=== PATIENT | female | born 1950 | race Caucasian/White ===

== ENCOUNTER → 2017-08-18 08:57 | Outpatient (CLI) | payer MEDICARE ==
[~2017-08-18 08:57] MED LIST: ISOSORBIDE MON120 M1 PO; KEPPRA1000 MG PO; METOPROLOL TART50 MG PO; OMEPRAZOLE40 MG PO; XARELTO10 MG PO; ZOLOFT50 MG PO
[2017-08-26 07:21] VITALS: BMI 27.4
== END | disposition home or self-care (01) ==
LOC: D.CT 08-14 08:00
DX: R04.2 Hemoptysis (principal)

== ENCOUNTER → 2017-08-21 07:59 | Outpatient (CLI) | payer MEDICARE ==
[2017-08-26 07:21] VITALS: BMI 27.4
== END | disposition home or self-care (01) ==
LOC: D.RAD 08-17 10:00
DX: K21.9 Gastro-esophageal reflux disease without esophagitis (principal); R11.2 Nausea with vomiting, unspecified

== ENCOUNTER 2017-08-26 06:14 | Day surgery (SDC) | payer MEDICARE ==
[~2017-08-26] VITALS: Ht 154.9 cm; Wt 65.9 kg
[2017-08-26] MEDS ORDERED: KEPPRA1000 MG PO ×2 (06:59)
[2017-08-26] MEDS ORDERED: XARELTO10 MG PO (07:00)
[2017-08-26] MEDS ORDERED: ISOSORBIDE MON120 M1 PO (07:01)
[2017-08-26] MEDS ORDERED: METOPROLOL TART50 MG PO (07:02)
[2017-08-26] MEDS ORDERED: ZOLOFT50 MG PO (07:03)
[2017-08-26 07:21] VITALS: BP 165/84; Ht 154.9 cm; Wt 65.9 kg
[2017-08-26 07:36] LABS: BASOPHILS 0.1 % (0-2); EOSINOPHILS 2.4 % (0-7); HEMATOCRIT 41.4 % (36.0-48.0); HEMOGLOBIN 13.7 g/dL (12-16); IMMATURE GRANULOCYTES 0.4 % (0-5); LYMPHOCYTES 29.7 % (15-50); MCH 32.4 pg (26.0-34.0); MCHC 33.1 g/dL (31.0-37.0); MCV 97.9 fL (80.0-100.0); MEAN PLATELET VOLUME 10.2 fL (7.4-10.4); MONOCYTES 9.9 % (2-11); NEUTROPHILS 57.5 % (40-80); PLATELET COUNT 189 10x3/uL (130-400); RBC 4.23 10x6/uL (4.00-5.40); RDW 12.6 % (11.5-14.5); WBC 6.7 10x3/uL (4.8-10.8)
[2017-08-26 07:53] LABS: ALBUMIN 3.6 g/dL (3.4-5.0); ALKALINE PHOSPHATASE 130 U/L (46-116); ALT (SGPT) 44 U/L (10-68); CALC OSMOLALITY 277 mosm/kg (275-300); CALCIUM 9.5 mg/dL (8.5-10.1); CARBON DIOXIDE 25.4 mmol/L (21.0-32.0); CHLORIDE - SERUM 106 mmol/L (98-107); CREATININE - SERUM 0.8 mg/dL (0.6-1.3); GLUCOSE 104 mg/dL (74-106); POTASSIUM - SERUM 4.7 mmol/L (3.5-5.1); PROTEIN - SERUM 7.9 g/dL (6.4-8.2); SODIUM 138 mmol/L (136-145); UREA NITROGEN 17 mg/dL (7-18); eGFR NON AFRICAN AMERICAN 75 mL/min (90-120)
[2017-08-26] MEDS ORDERED: OMEPRAZOLE40 MG PO (08:35)
--- NOTE | 2017-08-26 12:40 | OP ---
PATIENT NAME: FARHEEN NIX MEDICAL RECORD: [id number] :48 LOCATION:[facility] ADMISSION DATE: SURGEON: SHAGGY MYERS MD DATE OF OPERATION: 08/26/2017 DATE OF PROCEDURE: 08/26/2017 SURGEON: Shaggy Myers MD PREOPERATIVE DIAGNOSES: 1. Intractable nausea and vomiting. 2. Gastroesophageal reflux disease. 3. Hemoptysis. POSTOPERATIVE DIAGNOSES: 1. Intractable nausea and vomiting. 2. Gastroesophageal reflux disease. 3. Hemoptysis. PROCEDURE PERFORMED: EGD with biopsy. ANESTHESIA: Total intravenous anesthesia. Case was contaminated. ESTIMATED BLOOD LOSS: Minimal. COMPLICATIONS: None. SPECIMENS: 1. Duodenum. 2. Antrum. 3. Stomach body. 4. GE junction. OPERATIVE COURSE: After consent was obtained, the patient was taken to the endoscopy suite. A timeout was taken to confirm the correct patient and procedure. The patient was placed in left lateral decubitus position. Hurricaine [place] was administered. A bite block was placed. Total intravenous anesthesia was given. The gastroscope was then inserted through the bite block, it was passed into the posterior oropharynx under direct endoscopic vision, it was advanced posterior to the epiglottis and advanced to the esophagus and into the stomach. The stomach was insufflated. The scope was then passed from the stomach and through the pylorus. The duodenum was intubated. Duodenum appeared grossly normal. Multiple cold biopsies were taken of the duodenum at this time. The scope was withdrawn to the prepyloric region. There was some mwao-fl-xxyjtcjz antritis noted. Multiple biopsies were taken of the gastric antrum and prepyloric region. The stomach was examined. There was some mild gastritis noted. Multiple biopsies were taken of the stomach body. The scope was retroflexed. There was a small sliding hiatal hernia. There appears to be no endoscopic evidence of prior Noe fundoplication performed. The scope was withdrawn to the GE junction. Again noted, there was a small sliding hiatal hernia. The Z-line was within normal limits. There was some mild esophagitis noted. Multiple biopsies were taken of the GE junction. The remaining portion of the esophagus appeared within normal limits upon withdrawal of the scope. At OPERATIVE REPORT [id number] FARHEEN NIX the end of the procedure, all needle and instrument counts were correct. No complications occurred. The patient was transferred to the recovery room in satisfactory condition. TRANSINT:[id number] Voice Confirmation ID: [id number] DOCUMENT ID: [id number] SHAGGY MYERS MD at 1240 CC: [id number] DICTATION DATE: 08/26/17839 RACE STEWARD: 08/26/17 1107 [facility] 08/26/17 [place] [id number] [place] [id number]
== END 2017-08-26 09:50 | disposition home or self-care (01) ==
LOC: D.OPS 06:14
PROVIDERS: Anesthesiology
DX: R11.2 Nausea with vomiting, unspecified (principal); K21.9 Gastro-esophageal reflux disease without esophagitis; R04.2 Hemoptysis; I10 Essential (primary) hypertension; K44.9 Diaphragmatic hernia without obstruction or gangrene; K76.0 Fatty (change of) liver, not elsewhere classified; Z01.812 Encounter for preprocedural laboratory examination

== ENCOUNTER 2017-09-15 08:47 | Outpatient (CLI) | payer MEDICARE ==
[2017-08-26 07:21] VITALS: BMI 27.4
== END 2017-09-15 10:20 ==
LOC: D.OPS 08:47
DX: R11.2 Nausea with vomiting, unspecified (principal); K21.9 Gastro-esophageal reflux disease without esophagitis

== ENCOUNTER 2017-10-27 06:00 | Outpatient (CLI) | payer MEDICARE ==
[2017-08-26 07:21] VITALS: BMI 27.4
[~2017-10-27 06:00] MED LIST changes: +LOPRESSOR25 MG PO; -METOPROLOL TART50 MG PO
[2017-10-27] MEDS ORDERED: NITROSTAT0.4 MG SL (08:57)
[2017-10-27] MEDS ORDERED: BENTYL10 MG PO (09:00)
== END 2017-10-27 23:59 | disposition home or self-care (01) ==
LOC: D.OPS 06:00 → EDSTATUS 10-28 08:20 → D.PAN 10-28 08:20 → D.OPS 10-28 08:20 → D.PAN 10-28 09:30 → D.OPS 10-28 10:00 → D.PAN 10-28 10:00
DX: R11.2 Nausea with vomiting, unspecified (principal); Z01.810 Encounter for preprocedural cardiovascular examination; Z01.811 Encounter for preprocedural respiratory examination; Z01.812 Encounter for preprocedural laboratory examination; Z53.9 Procedure and treatment not carried out, unspecified reason

== ENCOUNTER 2017-11-30 07:07 | Inpatient (IN) | payer MEDICARE ==
[2017-11-27 11:59] LABS: HEMOGLOBIN 13.5 g/dL (12-16); MCH 32.5 pg (26.0-34.0); MCHC 33.8 g/dL (31.0-37.0); MCV 96.4 fL (80.0-100.0); MEAN PLATELET VOLUME 9.8 fL (7.4-10.4); RBC 4.15 10x6/uL (4.00-5.40); RDW 12.4 % (11.5-14.5); WBC 7.8 10x3/uL (4.8-10.8)
[~2017-11-30] VITALS: Ht 154.9 cm; Wt 68.2 kg
[~2017-11-30 07:07] MED LIST changes: +BENTYL10 MG PO; +NITROSTAT0.4 MG SL
[2017-11-30 07:17] VITALS: BP 138/73; BMI 26.5
[2017-11-30 11:17] VITALS: BP 156/79
[2017-11-30 14:06] VITALS: BP 156/79; Ht 154.9 cm; Wt 68.2 kg
[2017-11-30 16:45] VITALS: BP 168/73
[2017-11-30 20:49] VITALS: BP 146/67
[2017-12-01 04:00] VITALS: BP 116/75
[2017-12-01 05:31] LABS: BASOPHILS 0 % (0-2); EOSINOPHILS 0 % (0-7); HEMATOCRIT 35.1 % (36.0-48.0); HEMOGLOBIN 11.4 g/dL (12-16); IMMATURE GRANULOCYTES 0.2 % (0-5); LYMPHOCYTES 8.4 % (15-50); MCH 31.5 pg (26.0-34.0); MCHC 32.5 g/dL (31.0-37.0); MEAN PLATELET VOLUME 9.7 fL (7.4-10.4); MONOCYTES 6.8 % (2-11); NEUTROPHILS 84.6 % (40-80); PLATELET COUNT 207 10x3/uL (130-400); RBC 3.62 10x6/uL (4.00-5.40); RDW 12.4 % (11.5-14.5); WBC 10.1 10x3/uL (4.8-10.8)
[2017-12-01 06:00] LABS: BILIRUBIN - TOTAL 0.46 mg/dL (0.2-1.3); CALCIUM 8.7 mg/dL (8.5-10.1); CARBON DIOXIDE 24.2 mmol/L (21.0-32.0); CREATININE - SERUM 0.9 mg/dL (0.6-1.3); POTASSIUM - SERUM 5.2 mmol/L (3.5-5.1); PROTEIN - SERUM 7.6 g/dL (6.4-8.2)
[2017-12-01 07:49] VITALS: BP 151/73
[2017-12-01] MEDS ORDERED: HYDROCODON-ACE1 EAC7 PO (08:48)
== END 2017-12-01 12:18 | disposition home or self-care (01) | DRG 328 ==
LOC: D.SDCHOLD 07:07 → D.PAN 07:30 → D.OPS 07:30 → EDSTATUS 07:30 → D.SDCHOLD 07:30 → D.OPS 08:30 → D.SDCHOLD 08:30 → D.OPS 09:25 → D.MS 11:01
PROVIDERS: Anesthesiology; Surgery
PROC: 0BQT4ZZ Repair Diaphragm, Percutaneous Endoscopic Approach (ICD-10-PCS; 2017-11-30)
PROC: 0DV Gastrointestinal System, Restriction (ICD-10-PCS; principal; 2017-11-30 09:00)
DX: K21.9 Gastro-esophageal reflux disease without esophagitis (principal); K22.70 Barrett's esophagus without dysplasia; K44.9 Diaphragmatic hernia without obstruction or gangrene; R13.10 Dysphagia, unspecified

== ENCOUNTER → 2018-01-06 13:30 | Outpatient (CLI) | payer MEDICARE ==
[2017-11-30 14:06] VITALS: BMI 28.4
[~2018-01-06 13:30] MED LIST changes: +HYDROCODON-ACE1 EAC7 PO
== END | disposition home or self-care (01) ==
LOC: D.US 13:30
DX: N63.31 Unspecified lump in axillary tail of the right breast (principal)

== ENCOUNTER → 2018-04-07 07:15 | Outpatient (CLI) | payer MEDICARE ==
[2017-11-30 14:06] VITALS: BMI 28.4
[~2018-04-07 07:15] MED LIST changes: +TOPAMAX50 MG
== END | disposition home or self-care (01) ==
LOC: D.US 07:15
DX: N63.31 Unspecified lump in axillary tail of the right breast (principal)

== ENCOUNTER → 2018-05-07 08:07 | Outpatient (CLI) | payer MEDICARE ==
[2017-11-30 14:06] VITALS: BMI 28.4
== END | disposition home or self-care (01) ==
LOC: D.US 08:07
DX: R74.8 Abnormal levels of other serum enzymes (principal); R11.2 Nausea with vomiting, unspecified

== ENCOUNTER 2018-05-12 05:56 | Day surgery (SDC) | payer MEDICARE ==
[~2018-05-12] VITALS: Ht 154.9 cm; Wt 64.1 kg
--- NOTE | ~2018-05-12 | OP ---
PATIENT NAME: FARHEEN NIX MEDICAL RECORD: [id number] :48 [facility] AD[facility] DATE: SURGEON: VICKY BALBUENA DO DATE OF OPERATION: 05/12/2018 PROCEDURE: Colonoscopy with biopsies and stool collection. INDICATIONS FOR PROCEDURE: Diarrhea and hematochezia. SCOPE: Bizily video pediatric colonoscope. MEDICATIONS: Propofol 500 mg IV per anesthesia. WITHDRAWAL TIME: 9 minutes. ESTIMATED BLOOD LOSS: Minimal. COMPLICATIONS: None. FINDINGS: Informed consent was given. The patient was made comfortable with the above medication. After reaching an adequate level of sedation by slow IV push, the patient was placed on her left side. A digital rectal examination was performed and was normal. The endoscope was then advanced under direct visualization through the rectum to the cecum, confirmed by the presence of the appendiceal orifice and ileocecal valve. The endoscope was slowly withdrawn. Mucosa was carefully examined. The prep quality was good. There were no polyps visualized on today's examination. There was moderate diverticulosis scattered throughout the entire colon. Diverticula were of mixed large and small mouth type. There was no evidence of diverticulitis. Random biopsies were taken throughout the colon to submit for histopathology and to rule out the presence of microscopic colitis. Stool was collected to submit for xTAG study to rule out infectious etiology of diarrhea. Retroflexion was performed in the rectum with visualization of a normal-appearing rectal wall. The endoscope was then withdrawn from the patient. The patient tolerated the procedure well, and there were no complications. IMPRESSION: 1. Moderate diverticulosis involving the entire colon. 2. Otherwise normal colonoscopy by appearances. Random biopsies and stool collection performed. PLAN AND RECOMMENDATIONS: 1. Discharge home when recovery parameters are met. 2. Follow up biopsy specimen results and xTAG study. 3. High-fiber diet. 4. Continue current medications. 5. Trial of dicyclomine 20 mg p.o. up to 3 times daily as needed for loose stools or abdominal pain. 6. Recall colonoscopy in 7-10 years. TRANSINT:[id number] Voice Confirmation ID: [id number] DOCUMENT ID: [id number] OPERATIVE REPORT [id number] FARHEEN NIX VICKY BALBUENA DO at 1048 CC: [id number] DICTATION DATE: 09/05/18 0929 ELECTRONIC TESTER: 05/12/18 0945 [facility] 05/12/18 [facility] [address] [place] [address]
[~2018-05-12 05:56] MED LIST changes: -TOPAMAX50 MG
[2018-05-12 06:26] LABS: BASOPHILS 0.2 % (0-2); HEMATOCRIT 41.2 % (36.0-48.0); HEMOGLOBIN 14.1 g/dL (12-16); IMMATURE GRANULOCYTES 0.2 % (0-5); LYMPHOCYTES 22.1 % (15-50); MCH 32.2 pg (26.0-34.0); MCHC 34.2 g/dL (31.0-37.0); MCV 94.1 fL (80.0-100.0); MEAN PLATELET VOLUME 9.9 fL (7.4-10.4); MONOCYTES 9.4 % (2-11); NEUTROPHILS 66.1 % (40-80); PLATELET COUNT 237 10x3/uL (130-400); RBC 4.38 10x6/uL (4.00-5.40); RDW 13.1 % (11.5-14.5); WBC 9.1 10x3/uL (4.8-10.8)
[2018-05-12] MEDS ORDERED: TOPAMAX50 MG (06:41)
[2018-05-12] MEDS ORDERED: BENTYL10 MG PO (06:41)
[2018-05-12 06:49] VITALS: BP 157/86; Ht 154.9 cm; Wt 64.1 kg
[2018-05-12 07:10] LABS: ANION GAP 14.7 mmol/L (8-16); CALCIUM 9.1 mg/dL (8.5-10.1); CARBON DIOXIDE 22.2 mmol/L (21.0-32.0); POTASSIUM - SERUM 3.9 mmol/L (3.5-5.1)
== END 2018-05-12 10:10 | disposition home or self-care (01) ==
LOC: D.OPS 05:56
PROVIDERS: Anesthesiology
DX: K57.30 Diverticulosis of large intestine without perforation or abscess without bleeding (principal); K92.1 Melena; Z01.812 Encounter for preprocedural laboratory examination

== ENCOUNTER 2018-05-13 12:13 | Emergency (ER) | payer MEDICARE ==
[~2018-05-13] VITALS: Ht 154.9 cm; Wt 63.6 kg
[~2018-05-13 12:13] MED LIST changes: +TOPAMAX50 MG
[2018-05-13 12:26] VITALS: Ht 154.9 cm; Wt 63.6 kg
[2018-05-13 13:08] LABS: ALBUMIN 3.8 g/dL (3.4-5.0); ANION GAP 8.8 mmol/L (8-16); BILIRUBIN - TOTAL 0.38 mg/dL (0.2-1.3); POTASSIUM - SERUM 3.8 mmol/L (3.5-5.1); PROTEIN - SERUM 8.7 g/dL (6.4-8.2)
[2018-05-13 13:25] LABS: APPEARANCE HAZY (CLEAR); BACTERIA MODERATE /hpf (NONE SEEN); BILIRUBIN NEGATIVE (NEGATIVE); COLOR YELLOW (YELLOW); EPITHELIAL CELLS 0-5 /hpf (0-5); GLUCOSE NEGATIVE (NEGATIVE); HYALINE CAST 0-5 /lpf (NONE SEEN); KETONE SMALL mg/dL (NEGATIVE); MUCUS <1+ /lpf (NONE SEEN); NITRITE NEGATIVE (NEGATIVE); PROTEIN NEGATIVE (NEGATIVE); SPECIFIC GRAVITY 1.015 (1.005-1.020); UROBILINOGEN NORMAL (NORMAL); WHITE CELLS - URINE 0-5 /hpf (0-5)
[2018-05-13 14:18] LABS: RED CELLS - URINE 0-5 /hpf (0-5)
[2018-05-13 14:25] LABS: BASOPHILS 0.1 % (0-2); EOSINOPHILS 2.4 % (0-7); HEMATOCRIT 40.5 % (36.0-48.0); HEMOGLOBIN 13.7 g/dL (12-16); IMMATURE GRANULOCYTES 0.1 % (0-5); MCH 32.2 pg (26.0-34.0); MCHC 33.8 g/dL (31.0-37.0); MCV 95.1 fL (80.0-100.0); MEAN PLATELET VOLUME 10.4 fL (7.4-10.4); MONOCYTES 9.1 % (2-11); NEUTROPHILS 65.3 % (40-80); PLATELET COUNT 250 10x3/uL (130-400); RBC 4.26 10x6/uL (4.00-5.40); RDW 13.5 % (11.5-14.5); WBC 7.8 10x3/uL (4.8-10.8)
[2018-05-13 16:51] VITALS: BP 148/65
== END 2018-05-13 16:53 | disposition home or self-care (01) ==
LOC: D.ER 12:13
PROVIDERS: Family Medicine
DX: R10.30 Lower abdominal pain, unspecified (principal); Z98.890 Other specified postprocedural states; M54.5 Low back pain; Z86.73 Personal history of transient ischemic attack (TIA), and cerebral infarction without residual deficits; G40.909 Epilepsy, unspecified, not intractable, without status epilepticus; Z90.5 Acquired absence of kidney

== ENCOUNTER 2018-07-21 07:26 | Day surgery (SDC) | payer MEDICARE ==
[~2018-07-21] VITALS: Ht 154.9 cm; Wt 64.5 kg
--- NOTE | ~2018-07-21 | OP ---
PATIENT NAME: FARHEEN NIX MEDICAL RECORD: [id number] :48 LOCATION:[facility] ADMISSION DATE: SURGEON: VICKY BALBUENA DO DATE OF OPERATION: 07/21/2018 PROCEDURE: EGD with biopsies. INDICATIONS FOR PROCEDURE: Nausea and vomiting, upper abdominal pain, right lower quadrant abdominal pain, diarrhea. SCOPE: Olympus video gastroscope. MEDICATIONS: Propofol 140 mg IV per anesthesia. ESTIMATED BLOOD LOSS: Minimal. COMPLICATIONS: None. FINDINGS: Informed consent was given. The patient was made comfortable with the above medication. After reaching an adequate level of sedation by slow IV push, the patient was placed on her left side. The endoscope was advanced under direct visualization through the mouth to the third portion of the duodenum. The upper, middle, and lower thirds of the esophagus appeared normal. At the GE junction, there were no obvious findings of reflux esophagitis. The patient has had a LINX procedure in the past and this could be appreciated on examination. The endoscope easily traversed the GE junction into the stomach and retroflexed to view the cardia, which appeared normal. The fundus, body of the stomach, antrum, and prepyloric region had some patchy areas of erythema and granularity consistent with possible gastritis. Cold forceps were used to obtain biopsies to submit for histopathology and to rule out the presence of H. pylori. The endoscope was advanced beyond the pylorus into the duodenum. The bulb, first portion of the duodenum, second portion, and third portion of the duodenum appeared normal without obvious flattening of the villi surface, but multiple cold forceps biopsies were taken to submit for histology. The endoscope was then withdrawn from the patient. The patient tolerated the procedure well and there were no complications. IMPRESSION: 1. Possible gastritis, characterized by erythema and granularity in a patchy distribution within the stomach. 2. Otherwise normal EGD with biopsies taken from the stomach and small intestine. PLAN AND RECOMMENDATIONS: 1. Discharge home when recovery parameters are met. 2. Follow up biopsy specimen results. 3. Continue current diet. 4. We will check celiac antibodies. 5. We will provide a prescription for Lomotil to see if this helps with diarrhea while awaiting biopsy results and lab results. TRANSINT:[id number] Voice Confirmation ID: [id number] DOCUMENT ID: [id number] OPERATIVE REPORT [id number] FARHEEN NIX VICKY BALBUENA DO at 1422 CC: [id number] DICTATION DATE: 07/21/18 0941 EXPORT SALES ASSISTANT: 07/21/18 1134 [facility] 07/21/18 [place] [address] [place] [address]
[2018-07-21 07:49] LABS: BASOPHILS 0.3 % (0-2); EOSINOPHILS 2.1 % (0-7); HEMATOCRIT 41.9 % (36.0-48.0); HEMOGLOBIN 14.1 g/dL (12-16); IMMATURE GRANULOCYTES 0.3 % (0-5); LYMPHOCYTES 23.5 % (15-50); MCH 32.7 pg (26.0-34.0); MCHC 33.7 g/dL (31.0-37.0); MCV 97.2 fL (80.0-100.0); MEAN PLATELET VOLUME 9.6 fL (7.4-10.4); MONOCYTES 9.9 % (2-11); NEUTROPHILS 63.9 % (40-80); PLATELET COUNT 227 10x3/uL (130-400); RBC 4.31 10x6/uL (4.00-5.40); RDW 13.3 % (11.5-14.5); WBC 6.8 10x3/uL (4.8-10.8)
[2018-07-21 07:59] LABS: CALC OSMOLALITY 279 mosm/kg (275-300); CALCIUM 9.6 mg/dL (8.5-10.1); CARBON DIOXIDE 23.6 mmol/L (21.0-32.0); CHLORIDE - SERUM 106 mmol/L (98-107); CREATININE - SERUM 0.8 mg/dL (0.6-1.3); GLUCOSE 100 mg/dL (74-106); POTASSIUM - SERUM 3.9 mmol/L (3.5-5.1); SODIUM 141 mmol/L (136-145); UREA NITROGEN 11 mg/dL (7-18); eGFR NON AFRICAN AMERICAN 75 mL/min (90-120)
[2018-07-21] MEDS ORDERED: LOVENOX30 MG/0.3 SC (08:17)
[2018-07-21 08:20] VITALS: BP 152/62; Ht 154.9 cm; Wt 64.5 kg
[2018-07-22 11:17] LABS: IMMUNOGLOBULIN A 399 mg/dL (87-352); IMMUNOGLOBULIN G 1331 mg/dL (700-1600)
[2018-07-23 12:16] LABS: ANTIGLIADIN IGA 21 units (0-19); ANTIGLIADIN IGG 4 units (0-19)
== END 2018-07-21 10:50 | disposition home or self-care (01) ==
LOC: D.OPS 07:26
PROVIDERS: Anesthesiology; Internal Medicine Gastroenterology
DX: K31.9 Disease of stomach and duodenum, unspecified (principal); Z01.812 Encounter for preprocedural laboratory examination

== ENCOUNTER 2018-11-04 12:19 | Outpatient (CLI) | payer MEDICARE ==
[~2018-11-04] VITALS: Ht 154.9 cm; Wt 65.0 kg
--- NOTE | ~2018-11-04 | HEMODYNAMI ---
PATIENT:FARHEEN NIX MEDICAL RECORD: [id number] : 46 LOCATION:D.CAT ADMISSION DATE: 11/04/18 Generatedon:11/04/201815:39 Patient name: FARHEEN NIX Patient #: [id number] SSN: : Date of study: 11/04/2018 Page: Of Hemodynamic Procedure Report Patient Data Patient Demographics Procedure consent was obtained First Name: FARHEEN Gender: Female Last Name: ERICH : 1950 Middle Initial: LUDIN Age: 67 year(s) Patient #: [id number] Race: Unknown Additional ID: [id number] Contact details Address: [address] [place] [address] ctf State: [place] City: [place] Zip code: [address] Admission Admission Data Admission Date: 11/04/2018 Admission Time: 12:19 Lab Results Lab Result Date: 11/04/2018 Lab Result Time: 12:50 Biochemistry Name Units Result Min Max BUN mg/dl 12 --(-*--)-- 7 18 Creatinine mg/dl 0.8 --(-*--)-- 0.6 1.3 CBC Name Units Result Min Max Hematocrit % 40.4 -*(----)-- 42 54 Hemoglobin g/dl 13.5 --(*---)-- 13.5 17.5 Procedure Procedure Types Cath Procedure Diagnostic Procedure C [facility] w/Coronaries Sedation Charges Moderate Sedation up to 15 minutes PCI Procedure Coronary Stent Coronary Stent Initial Procedure Description Procedure Date Procedure Date: 11/04/2018 Procedure Start Time: 15:11 Procedure End Time: 15:36 Procedure Staff Name Function Lico Salvador MD Performing Physician Alex Lorenzo RT Monitor Stephanie Mckeon RN Nurse Krystal Garza RT Scrub Procedure Data Cath Procedure Fluoroscopy Diagnostic fluoroscopy Total fluoroscopy Time: 5.5 time: 5.5 min min Contrast Material Contrast Material Type Amount (ml) Isovue 300 96 Entry Location Entry Primary Successful Side Size Upsize Upsize Entry Closure Harrell ccessful Closure Location (Fr) 1 (Fr) 2 (Fr) Remarks Device Remarks Radial Right 6 Fr Mechanical artery Short Compression Estimated blood loss: 10 ml Diagnostic catheters Device Type Used For End Catheter Placement DIAGNOSTIC Ramona 110cm 5 Procedure Fr catheter ([id number]) DIAGNOSTIC JL 3.5 5Fr Procedure catheter ([id number]) Procedure Complications No complications Procedure Medications Medication Administration Route Dosage Oxygen etCO2 Nasal cannula 2 l/min Lidocaine 2% added to field 20 Heparin Flush Bag added to field 2 bags (1000units/500ml NS) 0.9% NaCl I.V. 100 ml/hr Zofran I.V. 4 mg Versed I.V. 2 mg Fentanyl I.V. 100 mcg Radial Cocktail I.A. 1 syringe (Verapomil 2mg/Nitro 400mcg/Heparin 1500units) Versed I.V. 1 mg Fentanyl I.V. 50 mcg Heparin Bolus I.V. 4000 units Integrilin (Bolus I.V. 5.6 ml 2mg/ml) Versed I.V. 1 mg Fentanyl I.V. 50 mcg Plavix P.O. 600 mg Hemodynamics Rest HGB: 13.5 (g/dl) Heart Rate: 88 (bpm) Pressure Samples Time Site Value (mmHg) Purpose Heart Use Rate(bpm) 15:15 LV 118/11,13 Snapshot 78 Gradients Valve Time Site Site Mean SEP/DFP Peak To Heart Use 1 2 (mmHg) (sec/min) Peak Rate (mmHg) (bpm) Aortic 15:16 LV AO 83 Snapshots Pre Cath Intra NCS Post Cath Vital Signs Time Heart Resp SPO2 etCO2 NIBP (mmHg) Rhythm Pain Sedation Rate (ipm) (%) (mmHg) Status Level (bpm) 15:04:22 91 13 96 15 170/104(129) NSR 0 (11) 10(A) , No pain 15:08:46 77 22 94 15 132/71(102) NSR 0 (11) 10(A) , No pain 15:12:58 80 16 96 0 119/81(111) NSR 0 (11) 10(A) , No pain 15:17:08 81 16 97 0 126/69(92) NSR 0 (11) 9(A) , No pain 15:21:22 80 16 98 0 110/66(95) NSR 0 (11) 9(A) , No pain 15:25:28 74 16 99 0 118/73(93) NSR 0 (11) 9(A) , No pain 15:29:36 77 17 100 0 126/73(102) NSR 0 (11) 9(A) , No pain 15:33:45 74 17 100 0 138/77(116) NSR 0 (11) 10(A) , No pain Medications Time Medication Route Dose Verified Delivered Reason Not es Effectiveness by by 15:02:13 Oxygen etCO2 2 l/min Lico [place]ij[place] used for Nasal St Chris Mckeon RN procedure cannula 15:02:20 Lidocaine 2% added 20ml Lico Lico for local to vial [facility] anesthetic field MD GASTELUM 15:02:27 Heparin Flush added 2 bags Lico Barfield used for Bag to [facility] procedure (1000units/500ml field MD GASTELUM NS) 15:04:04 0.9% NaCl I.V. 100 Lico Mijares[place] Per physician ml/hr St Chris Mckeon RN, MD 15:07:03 Zofran I.V. 4 mg Lico Brown Per physician St Chris Mckeon RN, MD 15:09:54 Versed I.V. 2 mg Lico Brown for sedation St Chris Mckeon RN, MD 15:10:01 Fentanyl I.V. 100 mcg Lico Brown for sedation St Chris Mckeon RN, MD 15:13:11 Radial Cocktail I.A. 1 Lico Barfield for (Verapomil syringe [facility] vasodilation 2mg/Nitro MD GASTELUM 400mcg/Heparin 1500units) 15:14:54 Versed I.V. 1 mg Lico Barfield for sedation St Chris Salvador MD, MD 15:14:58 Fentanyl I.V. 50 mcg Lico Barfield for sedation St Chris Salvador MD, MD 15:24:31 Heparin Bolus I.V. 4000 Lico Mijaresie for alexandru ified units St Chris Mckeon RN anticoagulation with dr MD lowe 15:25:26 Integrilin I.V. 5.6 ml Lico Brown for Was nickie (Bolus 2mg/ml) St Chris Mckeon RN antiplatelet 4.4 ml therapy of vial 15:29:33 Versed I.V. 1 mg Lico Brown for sedation St Chris Mckeon RN, MD 15:29:37 Fentanyl I.V. 50 mcg Lico Brown for sedation St Chris Mckeon RN, MD 15:37:05 Plavix P.O. 600 mg [address]ico Brown for St Chris Mckeon RN antiplatelet MD therapy Procedure Log Time Note 14:22:07 Time tracking: Regular hours (M-F 7:00 - 5:00) 14:22:12 Plan of Care:Hemodynamics will remain stable., Cardiac rhythm will remain stable., Comfort level will be maintained., Respiratory function will remain adequate., Patient/ family verbilizes understanding of procedure., Procedure tolerated without complication., Recovers from procedure without complications.. 14:41:26 Krystal Counts RT(R) sent for patient. Start room use. 14:50:57 Patient received from Pre/Post Procedure Room to CCL 2 Alert and oriented. Tansferred to table in Supine position. 14:50:58 Warm blankets applied, and lupe hugger turned on for patient comfort. 14:50:58 Correct patient and procedure confirmed by team. 14:50:59 Signed procedure consent form obtained from patient. 14:51:00 ECG and BP/O2 sat monitors applied to patient. 14:51:01 Pre-procedure instructions explained to patient. 14:51:01 Pre-op teaching completed and patient verbalized understanding. 14:51:03 Family in waiting room. 14:51:05 Patient NPO since Breakfast. 15:02:13 Oxygen 2 l/min etCO2 Nasal cannula was administered by Stephanie Mckeon RN; used for procedure; 15:02:20 Lidocaine 2% 20ml vial added to field was administered by Lico Salvador MD; for local anesthetic; 15:02:27 Heparin Flush Bag (1000units/500ml NS) 2 bags added to field was administered by Lico Salvador MD; used for procedure; 15:03:15 Vital chart was started 15:03:28 Baseline sample Acquired. 15:03:32 Rhythm: sinus rhythm 15:03:33 Full Disclosure recording started 15:03:43 H&P Date Dictated: 11/01/2018 Within 30 days and on chart., H&P Addendum completed by physician on day of procedure. (MUST COMPLETE FOR ALL OUTPATIENTS). 15:03:45 Is the patient allergic to Iodine/contrast media? No. 15:03:46 Is patient on blood thinner?Yes 15:03:47 Patient diabetic? No. 15:03:49 Previous problem with sedation/anesthesia? No ? 15:03:51 Snore? No 15:03:52 Sleep apnea? No 15:03:53 Deviated septum? No 15:03:54 Opens mouth fully? Yes 15:03:54 Sticks out tongue? Yes 15:03:56 Airway obstruction? No . 15:04:04 0.9% NaCl 100 ml/hr I.V. was administered by Stephanie Mckeon RN; Per physician; 15:04:04 Dentures? No loose tooth 15:04:07 Pre procedure: right dorsailis pedis pulse 2+ Normal; easily identifiable; not easily obliterated 15:04:08 Patient pain scale 0/10 ?. 15:04:10 Modified Erich's test Ulnar < 7 seconds 15:04:14 IV patent on arrival in left forearm with 0.9% NaCl at [facility]. 15:05:40 Lab Result : Creatinine 0.8 mg/dl 15:05:40 Lab Result : BUN 12 mg/dl 15:05:40 Lab Result : Hemoglobin 13.5 g/dl 15:05:40 Lab Result : Hematocrit 40.4 % 15:05:42 Lab results completed and on chart. 15:05:46 Right Radial & Right Groin area was prepped with chlora-prep and draped in sterile fashion 15:05:47 Alarms reviewed by R. N. 15:05:47 Sharps counted by scrub and verified by R.N. 15:05:51 Use device set Radial Dx or PCI 15:05:52 ACIST Syringe (58802) opened to sterile field. 15:05:52 Medline Cath Pack ([id number]) opened to sterile field. 15:05:53 Bag Decanter () opened to sterile field. 15:05:54 ACIST Hand Control (76846) opened to sterile field. 15:05:54 ACIST Manifold (66527) opened to sterile field. 15:05:55 Tegaderm 4 x 4 (1626W) opened to sterile field. 15:05:55 MBrace Wrist Support ([id number]) opened to sterile field. 15:05:57 SHEATH 6FR Slender (36-5912) opened to sterile field. 15:05:58 DIAGNOSTIC WIRE .035 260cm J wire (269796) opened to sterile field. 15:06:22 Physician arrived 15:06:22 --------ALL STOP TIME OUT------ 15:06:23 Final Timeout: patient, procedure, and site verified with staff and physician. All members of the team are in agreement. 15:06:24 Right Radial & Right Groin site verified by team. 15:06:28 Fire Safety Assessment: A--An alcohol-based skin anteseptic being used preoperatively., C--Open oxygen or nitrous oxide is being used., D--An ESU, laser, or fiber-optic light is being used. 15:06:32 Physical assessment completed. ASA score P 2 - A patient with mild systemic disease as per Lico Salvador MD. 15:06:34 Sedation plan: IV Moderate Sedation Medication:Versed, Fentanyl 15:07:03 Zofran 4 mg I.V. was administered by Stephanie Mckeon RN; Per physician; 15:07:35 Sedation plan: IV Moderate Sedation Medication:Versed, Fentanyl 15:09:54 Versed 2 mg I.V. was administered by Stephanie Mckeon RN; for sedation; 15:10:01 Fentanyl 100 mcg I.V. was administered by Stephanie Mckeon RN; for sedation; 15:11:21 Zero performed for pressure channel P1 15:11:29 Procedure started. 15:11:33 Local anesthetic to right radial artery with Lidocaine 2% by Lico Salvador MD.INITIAL ACCESS ONLY 15:13:11 Radial Cocktail (Verapomil 2mg/Nitro 400mcg/Heparin 1500units) 1 syringe I.A. was administered by Lico Salvador MD; for vasodilation; 15:14:01 A 6 Fr Short sheath was inserted into the Right Radial artery 15:14:05 A DIAGNOSTIC Ramona 110cm 5 Fr catheter ([id number]) was advanced over the wire and used for Procedure. 15:14:54 Versed 1 mg I.V. was administered by Lico Salvador MD; for sedation; 15:14:58 Fentanyl 50 mcg I.V. was administered by Lico Salvador MD; for sedation; 15:15:46 LV gram done using PEREZ 15:15:48 Injector settings: Ml/sec: 5, Volume: 15, 15:15:57 LV hemodynamics recorded. 15:16:00 EF : 55 % 15:16:32 RCA angiography performed. 15:18:07 Catheter exchanged over wire. 15:19:44 A DIAGNOSTIC JL 3.5 5Fr catheter ([id number]) was advanced over the wire and used for Procedure. 15:20:35 LCA angiography performed. 15::27 INFLATOR Merit BasixCompak (BI6335) opened to sterile field. 15::35 SHEATH 6FR [place] (QZQ758) opened to sterile field. 15:23: WHISPER 300cm guide wire ([id number]) opened to sterile field. 15:24:25 GUIDE 6FR EBU 3.5 catheter ([id number]) opened to sterile field. 15:24:31 Heparin Bolus 4000 units I.V. was administered by Stephanie Mckeon RN; for anticoagulation; verified with dr lowe 15::46 Catheter exchanged over wire. 15::55 6 Fr ebu 3.5 guide catheter was inserted over the wire 15:: Integrilin (Bolus 2mg/ml) 5.6 ml I.V. was administered by Stephanie Mckeon RN; for antiplatelet therapy; Wasted 4.4 ml of vial 15:27:09 whisper wire advanced. 15:27:10 Wire advanced across lesion. 15::33 Versed 1 mg I.V. was administered by Stephanie Mckeon RN; for sedation; 15::37 Fentanyl 50 mcg I.V. was administered by Stephanie Mckeon RN; for sedation; 15:29:47 Place stent Inflation Number: 1 A SANTIAGO OTW 3.0 x 34 stent ([id number]) was prepped and advanced across the Prox LAD. The stent was deployed at 14 RAYMOND for 0:10 (min:sec). 15::53 Inflation number: 2 The stent balloon was then re-inflated across the Prox LAD to 6 RAYMOND for 0:10 (min:sec). 15:31:14 Stent catheter was removed intact over wire. 15:31:15 Wire removed. 15:31:16 Guide catheter removed. 15:31:26 TR BAND Standard ([id number]) opened to sterile field. 15:31:37 Sheath removed intact; hemostasis achieved with Mechanical Compression to the Right Radial artery. 15:31:42 Procedure ended.(Physican Out) 15:33:19 Fluoroscopy time 05.50 minutes. 15:33:30 Contrast amount:Isovue 300 96ml. 15:33:31 Sharps counted by scrub and verified by R.N. 15:33:37 TR band inflated with 12cc of air. 15:33:38 Insertion/operative site no bleeding no hematoma. 15:33:49 Post right radial artery:stable, soft, clean and dry 15:33:51 Post Procedure Pulses reassessed and unchanged 15:33:55 Post-procedure physical assessment completed. ASA score P 2 - A patient with mild systemic disease as per Lico Salvador MD. 15:33:58 Post procedure rhythm: unchanged. 15:34:11 Estimated blood loss: 10 ml 15:34:18 Post procedure instruction explained to patient.Patient verbalizes understanding. 15:34:19 Patient needs reinforcement of post procedure teaching. 15:34:39 Procedure type changed to Cath procedure, Diagnostic procedure, LHC, LHC w/Coronaries, Sedation Charges, Moderate Sedation up to 15 minutes, PCI procedure, Coronary Stent, Coronary Stent Initial 15:36:09 Procedure and supply charges have been captured, reviewed, submitted and are correct. 15:36:11 Procedure Complication : No complications 15:36:13 Vital chart was stopped 15:36:13 See physician's report for complete and final results. 15:36:15 Report given to Pre/Post Procedure Room. 15:36:18 Patient transfered to Pre/Post Procedure Room with Stretcher. 15:36:20 Procedure ended. 15:36:20 Full Disclosure recording stopped 15:36:24 End room use (Document Last) 15:37:05 Plavix 600 mg P.O. was administered by Stephanie Mckeon RN; for antiplatelet therapy; Intervention Summary Intervention Notes Time ActionType Lesion and Equipment Action# Pressure Duration Attributes Used 15:29:47 Place stent Prox LAD SANTIAGO OTW 3.0 1 14 00:10 x 34 stent ([id number]) 15:30:53 Reinflate Prox LAD SANTIAGO OTW 3.0 2 6 00:10 stent x 34 stent balloon ([id number]) Device Usage Item Name Manufacture Quantity Catalog Hospital Part Current Mini mal Lot# / Number Charge Number Stock Stock Serial# Code ACIST Syringe Acist 1 [id number] 557347 331034 768033 20 (34910) [employer]us [employer] Medline Cath Medline 1 [id number] 163138 42184 745378 5 Pack ([id number]) Bag Decanter Microtek 1 2001S 508129 08045 666513 5 (2001S) Medical Inc. ACIST Hand Acist 1 03514 652983 205059 128966 5 Control Medical (18644) Systems Inc ACIST Acist 1 31416 380599 452485 036994 5 Manifold Medical (64825) Systems Inc Tegaderm 4 x 3M 1 1626W 545668 379698 133753 5 4 (1626W) MBrace Wrist Advanced 1 140-0250-00 192605 12611 849948 5 Support Vascular ([id number]) Dynamics SHEATH 6FR Terumo 1 [id number] 388995 270677 554405 5 Slender (80-1060) DIAGNOSTIC [facility] [place] 1 746793 488318 398084 982702 30 WIRE .035 260cm J wire (740888) DIAGNOSTIC Terumo 1 40-7353 628568 167886 683972 5 Ramona 110cm 5 Fr catheter (601708) DIAGNOSTIC JL Cardinal 1 [id number] 283960 254447 593921 5 3.5 5Fr Health catheter (859092D) INFLATOR TrackBill 1 ER0134 974433 541320 267091 15 TrackBill Medical BasixCompak (KF2223) SHEATH 6FR Terumo 1 RAL469 805591 071176 723893 40 [place] (TGN101) WHISPER 300cm [place] 1 [id number] 455221 163938 830623 5 guide wire Vascular (1825451PL) GUIDE 6FR EBU Medtronic 1 [id number] 694956 13609 654599 3 3.5 catheter (YI7SNI72) SANTIAGO OTW 3.0 Medtronic 1 [id number] 860276 2827996 757163 5 [id number] x 34 stent ([id number]) TR BAND Terumo 1 FHP01-[id number] 854000 821234 124048 40 Standard ([id number]) Signature Audit [place] Stage Time Signature Unsigned Intra-Procedure 11/04/2018 Alex Lorenzo 3:38:58 PM RT(R) Signatures Monitor : Alex Lorenzo RT Signature : Date : Time : [address] [place] [address]
[~2018-11-04 12:19] MED LIST changes: -ISOSORBIDE MON120 M1 PO; +ISOSORBIDE MONO30 M1 PO; +LOVENOX30 MG/0.3 SC; -TOPAMAX50 MG; +TOPAMAX50 MG PO
[2018-11-04] MEDS ORDERED: ALENDRONATE SOD40 MG PO (12:49)
[2018-11-04 13:00] VITALS: BP 156/84; Ht 154.9 cm; Wt 65.0 kg
[2018-11-04 13:06] LABS: BASOPHILS 0.3 % (0-2); EOSINOPHILS 1.7 % (0-7); HEMATOCRIT 40.4 % (36.0-48.0); HEMOGLOBIN 13.5 g/dL (12-16); IMMATURE GRANULOCYTES 0.3 % (0-5); LYMPHOCYTES 27.2 % (15-50); MCH 31.9 pg (26.0-34.0); MCHC 33.4 g/dL (31.0-37.0); MCV 95.5 fL (80.0-100.0); MEAN PLATELET VOLUME 9.5 fL (7.4-10.4); MONOCYTES 10.7 % (2-11); NEUTROPHILS 59.8 % (40-80); PLATELET COUNT 189 10x3/uL (130-400); RBC 4.23 10x6/uL (4.00-5.40); RDW 13.1 % (11.5-14.5); WBC 6.6 10x3/uL (4.8-10.8)
[2018-11-04 13:19] LABS: CALC OSMOLALITY 280 mosm/kg (275-300); CALCIUM 8.8 mg/dL (8.5-10.1); CARBON DIOXIDE 20.5 mmol/L (21.0-32.0); CHLORIDE - SERUM 109 mmol/L (98-107); CREATININE - SERUM 0.8 mg/dL (0.6-1.3); GLUCOSE 92 mg/dL (74-106); SODIUM 141 mmol/L (136-145); UREA NITROGEN 12 mg/dL (7-18); eGFR NON AFRICAN AMERICAN 75 mL/min (90-120)
[2018-11-04] MEDS ORDERED: PLAVIX75 MG PO (16:15)
--- NOTE | 2018-11-04 16:31 | NUR ---
1550 RECEIVED PT FROM MANAGER OPERATIONS. PT IS ALERT AND DENIES ANY C/O. NSR, DENIES ANY C/O CHEST PAIN. TR BAND IS CDI TO RIGH WRIST. FINGERS WARM AND CAP REFILL IS BRISK. AT BEDSIDE, CALL LIGHT IN REACH 1605 TR BAND CDI, FINGERS WARM AND CAP REFILL IS BRISK. SANDWICH AND PO FLUIDS AT BEDSIDE, VSS, CALL LIGHT IN REACH
--- NOTE | 2018-11-04 16:39 | NUR ---
TR BAND IS CDI, FINGERS WARM AND CAP REFILL IS BRISK. VSS. PT KARLA DIET AND PO FLUIDS WITH NO C/O NAUSEA. CALL LIGHT IN REACH.
--- NOTE | 2018-11-04 17:29 | NUR ---
TR BAND IS CDI, FINGERS WARM AND CAP REFILL IS BRISK. VSS. DENIES ANY C/O AT THIS TIME. AT BEDSIDE, CALL LIGHT IN REACH.
--- NOTE | 2018-11-04 17:35 | NUR ---
PT VOIDED APPROX 300 CC CLEAR YELLOW URINE TO BEDPAN.
--- NOTE | 2018-11-04 18:12 | NUR ---
TR BAND IS CDI TO R IGHT WRIST,NO BLEEDING NOTED. FINGERS WARM AND CAP REFILL IS BRISK. NSR, RATE IS 70, PT DENIES ANY C/O CHEST PAIN. BP IS 134/68. AND CALL LIGHT AT BEDSIDE.
--- NOTE | 2018-11-04 19:04 | NUR ---
1855 2 CC OF AIR WEANED FROM TR BAND WITH NO BLEEDING NOTED. FINGERS WARM AND CAP REFILL IS BRISK. NSR, RATE 70, DENIES ANY C/O. CALL LIGHT IN REACH.
--- NOTE | 2018-11-04 19:15 | NUR ---
2 CC OF AIR WEANED FROM TR ABND WITHNO BLEEDING NOTED.
--- NOTE | 2018-11-04 19:43 | NUR ---
1930 2 CC OF AIR WEANED FROM TR BAND WITH NO BLEEDING NOTED. 1941 2 CC OF AIR WEANED FROM TR BAND WITH NO BLEEDING NOTED.
--- NOTE | 2018-11-04 20:31 | NUR ---
1954 ALL REMAINING AIR WEANED FROM TR BAND WITH NO BLEEDING NOTED, FINGERS WARM, PULSE PALPABLE. PT DENIES ANY NV DEFICIT TO HAND. 2004 IV DC'D WITH CATH INTACT AND DC INSTRUCTIONS REVIEWED WITH PT AND WHO VERBALIZE UNDERSTANDING. [facility] PRESCRIPTION AND [facility] MED COUNSELOR SHEETS TO PT. PT AND VERBALIZE UNDERSTANDING TO START THIS MEDICATION TOMORROW. TR BAND REMVOED AND 2X2 AND TEGADERM PLACED TO SITE. 2014 PT HAS DRESSED FOR DC TO HOME WITH ASSIST. HAS AMBULATED TO THE BATHROOM AND VOIDED QS. DENIES ANY C/O. DRESSING REMAINS CDI TO RIGHT WRIST, PULSE PALPABLE. FINGERS WARM AND CAP REFILL IS BRISK. WRIST IMMOBILIZER IN PLACE. 2019 PT ESCORTED TO PRIVATE AUTO VIA WC BY NURSE WITH DRIVING HER HOME,. PT HAS ALL PERSONAL BELONGINGS AND DC INSTRUCTIONS WITH PRESCRIPTION AT TIME OF DC.
--- NOTE | 2018-11-06 10:16 | OP ---
PATIENT NAME: FARHEEN NIX MEDICAL RECORD: [id number] :46 LOCATION:D.CAT ADMISSION DATE: SURGEON: LEDA BABB MD DATE OF OPERATION: 11/04/2018 PROCEDURE: Left heart catheterization, selective coronary angiography, and right radial approach. CATHETERS: Radial sheath, Pinola catheter. The procedure was well tolerated. The patient returned to the le, sheath removed. TR band was placed. FINDINGS: Left ventriculography in 30-degree PEREZ view. Normal wall motion and normal systolic function. CORONARY ANATOMY: LEFT MAIN: Left main is free of disease. LAD: Has a severe diffuse stenosis, just past the takeoff of the circumflex, this is at mid portion of vessel of 80%. Circumflex: Circumflex is free of disease. RIGHT CORONARY ARTERY: Has approximately 50% stenosis in mid portion. IMPRESSION: Intervention to LAD momentarily. DESCRIPTION OF PROCEDURE: Using indwelling radial sheath, an EBU 3.5 catheter provided good guide catheter support followed by 300 cm Whisper wire was placed across the tightly occluded LAD down to first vessel. Stent deployed was a 3.0 x 34 mm [place] drug-eluting stent up to 14 atmospheres. Final angiography shows excellent resolution of an 80% stenosis. No significant residual. DOMINGO flow was 3 throughout the procedure. Sheath was closed with ExoSeal device. Plavix was loaded in the lab. TRANSINT:[id number] Voice Confirmation ID: [id number] DOCUMENT ID: [id number] LEDA BABB MD at 1016 CC: [id number] DICTATION DATE: 11/04/18 1542 [employer] INTERN: 11/04/182018 [facility] CLI 11/04/18 [place] [id number]
== END 2018-11-04 20:20 | disposition home or self-care (01) ==
LOC: D.CATH 12:19
PROVIDERS: ATTEND Internal Medicine Interventional Cardiology
DX: I25.119 Atherosclerotic heart disease of native coronary artery with unspecified angina pectoris (principal); Z01.812 Encounter for preprocedural laboratory examination
CPT/HCPCS: 93458; C9600

== ENCOUNTER → 2018-11-09 14:53 | Outpatient (CLI) | payer MEDICARE ==
[2018-11-04 13:00] VITALS: BMI 27.0
[~2018-11-09 14:53] MED LIST changes: +ALENDRONATE SOD40 MG PO; +PLAVIX75 MG PO
== END | disposition home or self-care (01) ==
LOC: D.US 14:30
PROVIDERS: ATTEND Nurse Practitioner
DX: R60.9 Edema, unspecified (principal); M79.601 Pain in right arm

== ENCOUNTER → 2018-11-25 07:56 | Outpatient (CLI) | payer MEDICARE ==
[2018-11-04 13:00] VITALS: BMI 27.0
[2018-11-25 09:24] LABS: ALBUMIN 3.6 g/dL (3.4-5.0); BILIRUBIN - DIRECT 0.09 mg/dL (0.00-0.30); BILIRUBIN - INDIRECT 0.19 mg/dL (0.00-1.00); BILIRUBIN - TOTAL 0.28 mg/dL (0.2-1.3); PROTEIN - SERUM 8.2 g/dL (6.4-8.2)
== END | disposition home or self-care (01) ==
LOC: D.US 07:56
PROVIDERS: ATTEND Internal Medicine Gastroenterology
DX: K76.0 Fatty (change of) liver, not elsewhere classified (principal)

== ENCOUNTER → 2019-02-03 12:57 | Outpatient (CLI) | payer MEDICARE | END | disposition home or self-care (01) | LOC: D.US 12:57 | DX: I82.593 Chronic embolism and thrombosis of other specified deep vein of lower extremity, bilateral (principal) ==

== ENCOUNTER → 2019-03-28 10:42 | Outpatient (CLI) | payer MEDICARE ==
[2018-11-04 13:00] VITALS: BMI 27.0
[2019-03-28 11:54] LABS: AMYLASE - SERUM 52 U/L (25-115); LIPASE 184 U/L (73-393)
== END | disposition home or self-care (01) ==
LOC: D.LAB 10:42 → D.NM 11:30
PROVIDERS: ATTEND Internal Medicine Gastroenterology
DX: R19.7 Diarrhea, unspecified (principal); R10.13 Epigastric pain; R68.81 Early satiety

== ENCOUNTER → 2019-04-01 07:26 | Outpatient (CLI) | payer MEDICARE ==
[2018-11-04 13:00] VITALS: BMI 27.0
== END | disposition home or self-care (01) ==
LOC: D.RAD 07:26
PROVIDERS: ATTEND Internal Medicine Gastroenterology
DX: R10.9 Unspecified abdominal pain (principal); R19.7 Diarrhea, unspecified

== ENCOUNTER → 2019-05-10 09:48 | Outpatient (CLI) | payer MEDICARE ==
[2018-11-04 13:00] VITALS: BMI 27.0
== END | disposition home or self-care (01) ==
LOC: D.HCCARDIO 09:48
PROVIDERS: ATTEND Internal Medicine Interventional Cardiology
DX: I10 Essential (primary) hypertension (principal)

== ENCOUNTER → 2019-07-18 12:46 | Outpatient (CLI) | payer MEDICARE ==
[2018-11-04 13:00] VITALS: BMI 27.0
[~2019-07-18 12:46] MED LIST changes: +ASPIRIN81 MG PO; +FOLIC ACID0.8 MG PO; +VITAMIN D31000 UNI2 PO; +XIFAXAN550 MG PO; +[UNRECOGNIZED DRUG - OTHER]
== END | disposition home or self-care (01) ==
LOC: D.CT 12:46
PROVIDERS: ATTEND Internal Medicine Hematology & Oncology
DX: R63.4 Abnormal weight loss (principal); R19.7 Diarrhea, unspecified; I82.593 Chronic embolism and thrombosis of other specified deep vein of lower extremity, bilateral

== ENCOUNTER → 2019-08-02 | Emergency (ER) | payer MEDICARE ==
[~2019-08-02] VITALS: Ht 154.9 cm; Wt 56.4 kg
[2019-08-02 16:55] VITALS: Ht 154.9 cm; Wt 56.4 kg
[2019-08-02 17:43] LABS: BASOPHILS 0.3 % (0-2); EOSINOPHILS 1.8 % (0-7); HEMATOCRIT 37.8 % (36.0-48.0); HEMOGLOBIN 12.3 g/dL (12-16); IMMATURE GRANULOCYTES 0.1 % (0-5); LYMPHOCYTES 30.4 % (15-50); MCHC 32.5 g/dL (31.0-37.0); MCV 95.2 fL (80.0-100.0); MEAN PLATELET VOLUME 9.8 fL (7.4-10.4); MONOCYTES 11.5 % (2-11); NEUTROPHILS 55.9 % (40-80); PLATELET COUNT 203 10x3/uL (130-400); RBC 3.97 10x6/uL (4.00-5.40); RDW 13.6 % (11.5-14.5); WBC 7.1 10x3/uL (4.8-10.8)
[2019-08-02 17:53] LABS: APTT 27.8 SECONDS (22.8-39.4); INR 1.08 (0.85-1.17); PROTIME 13.5 SECONDS (11.6-15.0)
[2019-08-02 17:54] LABS: D-DIMER-QUANTITATIVE 0.39 ug/mLFEU (0.20-0.54)
[2019-08-02 17:55] LABS: CALCIUM 8.9 mg/dL (8.5-10.1); CARBON DIOXIDE 21.8 mmol/L (21.0-32.0); CREATININE - SERUM 0.9 mg/dL (0.6-1.3); POTASSIUM - SERUM 3.8 mmol/L (3.5-5.1)
[2019-08-02 18:02] LABS: ALBUMIN 3.7 g/dL (3.4-5.0); BILIRUBIN - TOTAL 0.49 mg/dL (0.2-1.3); PROTEIN - SERUM 8.2 g/dL (6.4-8.2)
[2019-08-02 19:15] VITALS: BP 147/49
== END ==
LOC: D.ER 16:51
PROVIDERS: Family Medicine
DX: M79.18 Myalgia, other site (principal); Z86.73 Personal history of transient ischemic attack (TIA), and cerebral infarction without residual deficits; I25.2 Old myocardial infarction; I10 Essential (primary) hypertension; I25.10 Atherosclerotic heart disease of native coronary artery without angina pectoris

== ENCOUNTER → 2019-08-17 07:49 | Outpatient (CLI) | payer MEDICARE ==
[2019-08-02 16:55] VITALS: BMI 23.4
[2019-08-17 08:56] LABS: ALBUMIN 3.8 g/dL (3.4-5.0); BILIRUBIN - DIRECT 0.09 mg/dL (0.00-0.30); BILIRUBIN - INDIRECT 0.41 mg/dL (0.00-1.00); BILIRUBIN - TOTAL 0.5 mg/dL (0.2-1.3); PROTEIN - SERUM 8.1 g/dL (6.4-8.2)
[2019-08-19 15:09] LABS: CALCITONIN <2.0 pg/mL (0.0-5.0); GASTRIN 16 pg/mL (0-115)
== END | disposition home or self-care (01) ==
LOC: D.US 07:49
PROVIDERS: ATTEND Internal Medicine Gastroenterology
DX: K76.0 Fatty (change of) liver, not elsewhere classified (principal)

== ENCOUNTER 2019-09-20 18:00 | Outpatient (CLI) | payer MEDICARE ==
[2019-08-02 16:55] VITALS: BMI 23.4
== END 2019-09-20 23:59 | disposition home or self-care (01) ==
LOC: D.MAMMO 18:00
PROVIDERS: ATTEND Family Medicine
DX: Z12.31 Encounter for screening mammogram for malignant neoplasm of breast (principal)

== ENCOUNTER → 2020-02-23 09:39 | Outpatient (CLI) | payer MEDICARE ==
[2019-08-02 16:55] VITALS: BMI 23.4
[~2020-02-23 09:39] MED LIST changes: +PRINIVIL20 MG PO
[2020-02-23 10:54] LABS: BILIRUBIN - DIRECT 0.11 mg/dL (0.00-0.30); BILIRUBIN - INDIRECT 0.41 mg/dL (0.00-1.00); BILIRUBIN - TOTAL 0.52 mg/dL (0.2-1.3); PROTEIN - SERUM 8.3 g/dL (6.4-8.2)
== END | disposition home or self-care (01) ==
LOC: D.LAB 09:39 → D.US 10:30
PROVIDERS: ATTEND Internal Medicine Gastroenterology
DX: K76.0 Fatty (change of) liver, not elsewhere classified (principal)

== ENCOUNTER 2020-02-24 10:35 | Inpatient (IN) | payer MEDICARE ==
[~2020-02-24] VITALS: Ht 154.9 cm; Wt 58.5 kg
[~2020-02-24 10:35] MED LIST changes: -PRINIVIL20 MG PO
[2020-02-24 12:30] VITALS: BP 153/60
[2020-02-24 12:51] LABS: ANION GAP 14.5 mmol/L (8-16); CALCIUM 8.9 mg/dL (8.5-10.1); CARBON DIOXIDE 21.1 mmol/L (21.0-32.0); CREATININE - SERUM 1.1 mg/dL (0.6-1.3); POTASSIUM - SERUM 3.6 mmol/L (3.5-5.1)
[2020-02-24] MEDS ORDERED: PRINIVIL20 MG PO (12:51)
[2020-02-24 12:56] LABS: BASOPHILS 0.1 % (0-2); EOSINOPHILS 0.3 % (0-7); HEMATOCRIT 36.1 % (36.0-48.0); HEMOGLOBIN 11.7 g/dL (12-16); IMMATURE GRANULOCYTES 0.3 % (0-5); LYMPHOCYTES 7.7 % (15-50); MCH 32.1 pg (26.0-34.0); MCHC 32.4 g/dL (31.0-37.0); MCV 99.2 fL (80.0-100.0); MEAN PLATELET VOLUME 9.8 fL (7.4-10.4); MONOCYTES 5.4 % (2-11); NEUTROPHILS 86.2 % (40-80); PLATELET COUNT 202 10x3/uL (130-400); RBC 3.64 10x6/uL (4.00-5.40); RDW 13.3 % (11.5-14.5); WBC 11.4 10x3/uL (4.8-10.8)
[2020-02-24 12:57] LABS: ALBUMIN 3.7 g/dL (3.4-5.0); BILIRUBIN - TOTAL 0.32 mg/dL (0.2-1.3); PROTEIN - SERUM 7.8 g/dL (6.4-8.2)
[2020-02-24 13:30] VITALS: BP 140/61
[2020-02-24 13:33] LABS: INR 1.8 (0.85-1.17); PROTIME 20.6 SECONDS (11.6-15.0)
[2020-02-24 15:01] VITALS: BP 140/93
[2020-02-24 18:02] VITALS: BP 125/53
[2020-02-24 20:26] VITALS: BP 134/65; BMI 23.6
--- NOTE | 2020-02-24 21:00 | NUR ---
PT REFUSING BED OR BECKY ALARM. EXPLAINED THE IMPORTANCE OF HER CALLING FOR HELP BEFORE SHE GETS UP TO PREVENT FALLS. SHE VERBALZED UNDERSTANDING.
--- NOTE | 2020-02-24 23:00 | NUR ---
SLING PLACED ON RIGHT ARM PER DR. BLACK'S NOTE.
[2020-02-25] VITALS: BP 146/58
[2020-02-25 04:00] VITALS: BP 153/60
[2020-02-25 07:19] LABS: BASOPHILS 0.2 % (0-2); EOSINOPHILS 0.3 % (0-7); HEMATOCRIT 35.5 % (36.0-48.0); HEMOGLOBIN 11.2 g/dL (12-16); IMMATURE GRANULOCYTES 0.3 % (0-5); LYMPHOCYTES 22.9 % (15-50); MCH 31.5 pg (26.0-34.0); MCHC 31.5 g/dL (31.0-37.0); MCV 99.7 fL (80.0-100.0); MEAN PLATELET VOLUME 10.2 fL (7.4-10.4); MONOCYTES 9.2 % (2-11); NEUTROPHILS 67.1 % (40-80); PLATELET COUNT 222 10x3/uL (130-400); RBC 3.56 10x6/uL (4.00-5.40); RDW 13.5 % (11.5-14.5); WBC 9.9 10x3/uL (4.8-10.8)
[2020-02-25 07:29] LABS: INR 1.26 (0.85-1.17); PROTIME 15.7 SECONDS (11.6-15.0)
[2020-02-25 07:32] LABS: ANION GAP 12.6 mmol/L (8-16); CALCIUM 8.4 mg/dL (8.5-10.1); CREATININE - SERUM 1.1 mg/dL (0.6-1.3); MAGNESIUM - SERUM 2.1 mg/dL (1.8-2.4); PHOSPHOROUS 3.9 mg/dL (2.5-4.9); POTASSIUM - SERUM 3.6 mmol/L (3.5-5.1)
[2020-02-25 08:38] VITALS: BP 151/61
[2020-02-25 13:07] VITALS: BP 141/67
[2020-02-25 16:53] VITALS: BP 149/51
--- NOTE | 2020-02-25 18:45 | NUR ---
PATIENT SITTING UP IN BED WITH NO COMPLAINTS OR SIGNS OF DISTRESS. FAMILY AT BEDSIDE. [facility]
[2020-02-25 20:00] VITALS: BP 135/56
[2020-02-26] VITALS: BP 121/49
--- NOTE | 2020-02-26 01:39 | NUR ---
PATIENT IS ALERT AND PRENTED X4 ABLE TO VOICE NEEDS AND WANTS TO STAFF. IV TO LEFT AC RIGHT ARM IN SLING AWATTING SURG. TELEMETRY IN PLACE 53 SB INCENTIVE SPIROMETER IN REACH TEACHING COMPLETED SCD'S IN PLACE [place] IN CHART FOR FOR ALARM. WATWER AND CALL LIGHT IN REACH MORPHINE PRN FOR PAIN CONTROL. UP WITH ASSISST TO BATROOM, ASSISSTED WITH SCD'S ON AND OFF.
[2020-02-26 04:00] VITALS: BP 124/47
[2020-02-26 06:41] LABS: HEMATOCRIT 29.9 % (36.0-48.0); HEMOGLOBIN 9.5 g/dL (12-16); LYMPHOCYTES 22.4 % (15-50); MCH 31.1 pg (26.0-34.0); MCHC 31.8 g/dL (31.0-37.0); MEAN PLATELET VOLUME 9.9 fL (7.4-10.4); NEUTROPHILS 66.7 % (40-80); PLATELET COUNT 194 10x3/uL (130-400); RBC 3.05 10x6/uL (4.00-5.40); RDW 13.3 % (11.5-14.5); WBC 7.7 10x3/uL (4.8-10.8)
[2020-02-26 06:50] LABS: ANION GAP 10.6 mmol/L (8-16); CALCIUM 8.1 mg/dL (8.5-10.1); CARBON DIOXIDE 25.2 mmol/L (21.0-32.0); CREATININE - SERUM 0.9 mg/dL (0.6-1.3); MAGNESIUM - SERUM 2.1 mg/dL (1.8-2.4); POTASSIUM - SERUM 3.8 mmol/L (3.5-5.1)
[2020-02-26 06:54] LABS: PHOSPHOROUS 2.6 mg/dL (2.5-4.9)
[2020-02-26 07:15] VITALS: BP 101/50
[2020-02-26 12:00] VITALS: BP 145/47
--- NOTE | 2020-02-26 13:21 | NUR ---
SHE HAD A SHOWER TODAY.
[2020-02-26 16:00] VITALS: BP 127/54
--- NOTE | 2020-02-26 18:45 | NUR ---
PATIENT IN BED WITH IV ITNACT. NO COMPLAINTS OR SIGNS OF DISTRESS. FAMILY AT BEDSIDE. CALL LIGHT WITHIN REACH.
[2020-02-26 20:00] VITALS: BP 89/53
[2020-02-27] VITALS: BP 97/41
--- NOTE | 2020-02-27 01:18 | NUR ---
I have reviewed this patient and I concur with the Shift Assessment completed by the Licensed Practical Nurse today this shift.
[2020-02-27 04:00] VITALS: BP 116/38
[2020-02-27 06:12] LABS: HEMOGLOBIN 9.1 g/dL (12-16); LYMPHOCYTES 28.7 % (15-50); MCH 31.7 pg (26.0-34.0); MCHC 32.5 g/dL (31.0-37.0); MCV 97.6 fL (80.0-100.0); MEAN PLATELET VOLUME 10.1 fL (7.4-10.4); NEUTROPHILS 58.6 % (40-80); PLATELET COUNT 165 10x3/uL (130-400); RBC 2.87 10x6/uL (4.00-5.40); RDW 13.1 % (11.5-14.5)
[2020-02-27 06:15] LABS: ANION GAP 12.4 mmol/L (8-16); CALCIUM 8.2 mg/dL (8.5-10.1); CARBON DIOXIDE 25.2 mmol/L (21.0-32.0); CREATININE - SERUM 0.9 mg/dL (0.6-1.3); POTASSIUM - SERUM 3.6 mmol/L (3.5-5.1)
[2020-02-27 06:16] LABS: PHOSPHOROUS 3.3 mg/dL (2.5-4.9)
[2020-02-27 06:26] LABS: APTT 29.6 SECONDS (22.8-39.4); INR 1.14 (0.85-1.17); PROTIME 14.5 SECONDS (11.6-15.0)
--- NOTE | 2020-02-27 06:55 | NUR ---
ALERT AND ORIENTED, RESTING IN BED WITH EYES OPEN. NO C/O PAIN. NO S/S OF ACUTE DISTRESS NOTED. UP WITH ASSIST. SCAB/SORE TO CHIN FROM FALL. SCDS ON. IV TO LEFT AC, SL. SITE PATENT WITHOUT REDNESS OR SWELLING. ON TELEMETRY 57 SB. RIGHT HUMERUS FX, ARM IN SLING. DENIES ANY NEEDS AT THIS TIME. CALL LIGHT IN REACH. WILL CONTINUE TO MONITOR.
[2020-02-27 09:31] VITALS: BP 141/55
--- NOTE | 2020-02-27 10:37 | NUR ---
I have reviewed this patient and I concur with the Shift Assessment completed by the Licensed Practical Nurse today this shift.
[2020-02-27 13:42] VITALS: Ht 154.9 cm; Wt 58.5 kg
[2020-02-27 14:02] VITALS: BP 81/55
[2020-02-27 18:40] VITALS: BP 129/55
--- NOTE | 2020-02-27 18:48 | NUR ---
ALERT AND ORIENTED. NO C/O PAIN. NO S/S OF ACUTE DISTRESS NOTED. DENIES ANY NEEDS AT THIS TIME. CALL LIGHT IN REACH. WILL CONTINUE TO MONITOR.
[2020-02-27 20:48] VITALS: BP 124/68
[2020-02-28] VITALS (10 sets, daily range): BP systolic 115–148; BP diastolic 37–81
[2020-02-28 04:21] LABS: BASOPHILS 0.2 % (0-2); EOSINOPHILS 1.7 % (0-7); HEMATOCRIT 28.2 % (36.0-48.0); HEMOGLOBIN 8.9 g/dL (12-16); IMMATURE GRANULOCYTES 0.2 % (0-5); LYMPHOCYTES 28.8 % (15-50); MCH 30.8 pg (26.0-34.0); MCHC 31.6 g/dL (31.0-37.0); MCV 97.6 fL (80.0-100.0); MEAN PLATELET VOLUME 9.5 fL (7.4-10.4); MONOCYTES 10.9 % (2-11); NEUTROPHILS 58.2 % (40-80); PLATELET COUNT 186 10x3/uL (130-400); RBC 2.89 10x6/uL (4.00-5.40); RDW 13.3 % (11.5-14.5); WBC 6.5 10x3/uL (4.8-10.8)
[2020-02-28 04:56] LABS: CALC OSMOLALITY 283 mosm/kg (275-300); CALCIUM 8.4 mg/dL (8.5-10.1); CARBON DIOXIDE 23.3 mmol/L (21.0-32.0); CHLORIDE - SERUM 110 mmol/L (98-107); CREATININE - SERUM 0.8 mg/dL (0.6-1.3); GLUCOSE 93 mg/dL (74-106); MAGNESIUM - SERUM 2.1 mg/dL (1.8-2.4); PHOSPHOROUS 3.5 mg/dL (2.5-4.9); POTASSIUM - SERUM 3.3 mmol/L (3.5-5.1); SODIUM 142 mmol/L (136-145); UREA NITROGEN 15 mg/dL (7-18); eGFR NON AFRICAN AMERICAN 75 mL/min (90-120)
--- NOTE | 2020-02-28 07:45 | NUR ---
ALERT AND ORIENTED. LUNGS CLEAR BILATERALLY. HEART SOUNDS S1 AND S2 HEARD IN ALL CANTU. BOWEL SOUNDS ACTIVE X 4. SLING TO RIGHT SHOULDER. IV TO LEFT AC PATENT WITHOUT REDNESS. BED LOW. CALL DILLON AND PERSONAL ITEMS IN REACH. WILL CONTINUE TO MONITOR.
--- NOTE | 2020-02-28 10:23 | NUR ---
PREOP MEDS GIVEN PER ORDER.
--- NOTE | 2020-02-28 10:25 | NUR ---
REGLAN NOT GIVEN D/T PATIENT ALLERGY.
--- NOTE | 2020-02-28 11:00 | NUR ---
PATIENT TAKEN FOR PROCEDURE.
--- NOTE | 2020-02-28 13:45 | NUR ---
THROUGH TRAFFIC KEPT TO MINIMUM. HIBACLENS AND ALCOHOL USED TO PREP BEFORE CHLORAPREP. STERILE GOWNED AND GLOVED TO PREP WITH HIBACLENS.
--- NOTE | 2020-02-28 15:33 | NUR ---
PATIENT RETURNED FROM PROCEDURE. VITALS STABLE. WILL CONTINUE TO MONITOR.
[2020-02-29 00:14] VITALS: BP 111/46
--- NOTE | 2020-02-29 03:50 | NUR ---
I have reviewed this patient and I concur with the Shift Assessment completed by the Licensed Practical Nurse today this shift.
[2020-02-29 06:10] VITALS: BP 140/53
--- NOTE | 2020-02-29 06:30 | OP ---
PATIENT NAME: FARHEEN JUNG MEDICAL RECORD: [id number] :46 LOCATION:D.MS [id number] ADMISSION DATE:02/24/20 SURGEON: JUNIOR BLACK, DATE OF OPERATION: 02/28/2020 PROCEDURE PERFORMED: Right reverse total shoulder arthroplasty. PREOPERATIVE DIAGNOSIS: Displaced comminuted right proximal humerus fracture, closed. POSTOPERATIVE DIAGNOSIS: Displaced comminuted right proximal humerus fracture, closed. INDICATIONS: Ms. Jung is a 69-year-old female who fell while walking her dog last week, she was on Xarelto and so she was admitted. She did not think she would be handled at home. She was admitted and stopped Xarelto and put on Lovenox. This was stopped yesterday and she was made n.p.o. from midnight. I informed her of the risks of the surgery including infection, bleeding, damage to nerves and vessels, need for further surgery, continued pain, arthrofibrosis of the shoulder, fracture of the humerus, implant failure including loosening and even and she signed the consent. SURGEON: Junior Black MD DESCRIPTION OF THE PROCEDURE: The patient received a block by anesthesia in preoperative area, was taken to the operative suite, laid in the supine position, given general anesthetic and intubated. She was given 900 mg of clindamycin preoperatively. She was then sat up in the beach chair position and positioned. The right upper extremity was then prepped and draped in sterile fashion. A timeout was performed and everyone was in agreement with the correct side, site, patient, and the procedure. We then began by marking out the deltopectoral interval. I made an incision through the skin and then dissected down to the deltopectoral interval and the release of the proximal centimeter of the PEG and tied the long head of the biceps tendon to that and cut the long head of the biceps proximal to that. I then opened up the joint, tagged the subscapularis and then peeled it off the anterior humerus. The anterior humerus then came out and has the fracture and removed in the other fragments that were there. I then exposed the glenoid, removed the labrum and what was left of the long head of the biceps tendon and placed the retractors, put a centering pin and reamed and then impacted the tray 25 mini baseplate. I then measured the central screw the 25. We put that in, had a very good bite. I then put in 3 peripheral screws, 125, 120, and 115 and then impacted on the glenosphere. Once glenosphere was impacted on, the humerus was exposed and began reaming and then broaching, reamed up to an 8 and then broached to an 8, 8 fit well. We reduced the trial and it fit very well. We decided to go with that. We then removed the trial humerus and irrigated and then put the actual implant in 30 degrees of external rotation. I then impacted the tray on and reduced the shoulder. It fit very well, had good tightness of the conjoined tendon as well as the deltoid fibers, then irrigated with 10% povidone iodine and 500 mL of normal saline solution and let it sit for 3 minutes proximally and then irrigated out with another liter of normal saline and then put in a drain exiting posteriorly and then put in Buffy powder and vancomycin powder. The site was then closed by Ayla Doss, certified operating room surgical technologist, with 2-0 Vicryl in interrupted fashion and 4-0 Monocryl running on the skin and then Prineo glue placed on the skin. The drain was then secured in place with 2 Tegaderms and she was dressed with OPERATIVE REPORT [id number] FARHEEN JUNG and Tegaderm. She was awakened and taken to recovery in stable condition. Blood loss approximately 150 mL. COMPLICATIONS: None. TRANSINT:[id number] Voice Confirmation ID: [id number] DOCUMENT ID: [id number] JUNIOR BLACK DO at 0630 CC: [id number] DICTATION DATE: 02/28/20 1428 HEAVY COIL WINDER: 02/29/20 0049 ADM IN [facility] [address] [place] [id number]
--- NOTE | 2020-02-29 07:01 | NUR ---
PT IS RESTING IN BED WITH EYES OPEN. RESPIRATIONS ARE EVEN AND UNLABORED. PT IS AAO X 4. PT WITH SLING TO RIGHT ARM. DOVAL DRAIN NOTED TO RIGHT SHOULDER. PT DENIES PRESENCE OF NUMBNESS/TINGLING TO RUE. RADIAL PULSE PALP AND CAP REFILL IS < 3 SECONDS. SCDS ARE ON BLE. PT DENIES PRESENCE OF N/V AT THIS TIME. PT REPORTS PAIN. PAIN ADDRESSED. SEE EMAR. FALL PRECAUTIONS IN PLACE. INCENTIVE SPIROMETER AT BEDSIDE AND ENCOURAGED. PT VERBALIZES UNDERSTANDING. PIV TO RIGHT AC INFUSING WITHOUT DIFFICULTY. BED IS IN THE LOWEST POSITION. CALL LIGHT AND BEDSIDE TABLE ARE WITHIN REACH. SIDE RAILS X 2. PT DENIES FURTHER NEEDS. WILL CONT TO MONITOR.
[2020-02-29 08:30] LABS: BASOPHILS 0.1 % (0-2); EOSINOPHILS 0 % (0-7); HEMATOCRIT 28.2 % (36.0-48.0); HEMOGLOBIN 8.7 g/dL (12-16); IMMATURE GRANULOCYTES 0.3 % (0-5); LYMPHOCYTES 14.3 % (15-50); MCH 30.6 pg (26.0-34.0); MCHC 30.9 g/dL (31.0-37.0); MCV 99.3 fL (80.0-100.0); MEAN PLATELET VOLUME 9.7 fL (7.4-10.4); MONOCYTES 11.3 % (2-11); PLATELET COUNT 219 10x3/uL (130-400); RBC 2.84 10x6/uL (4.00-5.40); RDW 13.2 % (11.5-14.5); WBC 6.7 10x3/uL (4.8-10.8)
[2020-02-29 08:42] LABS: CALC OSMOLALITY 283 mosm/kg (275-300); CALCIUM 8.6 mg/dL (8.5-10.1); CARBON DIOXIDE 20.7 mmol/L (21.0-32.0); CHLORIDE - SERUM 110 mmol/L (98-107); CREATININE - SERUM 0.6 mg/dL (0.6-1.3); GLUCOSE 95 mg/dL (74-106); MAGNESIUM - SERUM 2.1 mg/dL (1.8-2.4); PHOSPHOROUS 3.7 mg/dL (2.5-4.9); SODIUM 142 mmol/L (136-145); UREA NITROGEN 14 mg/dL (7-18); eGFR NON AFRICAN AMERICAN > 90 mL/min (90-120)
[2020-02-29 09:45] VITALS: BP 155/65
[2020-02-29 12:00] VITALS: BP 139/65
--- NOTE | 2020-02-29 14:22 | NUR ---
Nutrition follow-up: Pt s/p shoulder surgery Diet advanced to regular with po intake ~50% x 1 meal Labs reviewed Wt: 128# RDN following.
[2020-02-29 16:00] VITALS: BP 138/60
--- NOTE | 2020-02-29 17:10 | MORECARE ---
CASE MANAGEMENT DISCHARGE SUMMARY PATIENT: FARHEEN NIX LUDIN UNIT: [id number] ADM DATE: 02/24/20 AGE: 69 : 48 SEX: F ROOM/BED: D.2234 AUTHOR: HENNA FRAIRE PHYSICIAN: REFERRING PHYSICIAN: LEDA FOWLER MD DATE OF SERVICE: 02/29/20 Discharge Plan Patient Name: FARHEEN NIX Facility: [facility]:[place] : 1950 Planned Disposition: Home Anticipated Discharge Date: Discharge Date: Expected LOS: Initial Reviewer: [email or web address] Initial Review Date: 02/29/2020 Generated: 02/29/20 6:10 pm Comments DCP- Discharge Planning Updated by [id number]: Es Gomes on 02/29/20 4:[address] Patient Name: FARHEEN NIX Admission Status: Elective Accout number: [id number] Admission Date: 02-24-2020 : 1950 Admission Diagnosis:UNSP FRACTURE OF SHAFT OF HUMERUS, RIGHT ARM, INIT Attending: TANISHA Current LOS: 5 Anticipated DC Date: Planned Disposition: Home Primary Insurance: MEDICARE A & B Discharge Planning Comments: CM met with patient at bedside after explaining CM role and obtaining verbal consent. CM discussed availability / needs of home health, REHAB and medical equipment. PATIENT DENIES ANY DISCHARGE NEEDS. PLANS TO DC TO HOME WITH . DOES NOT WANT HH OR NEED EQUIPMENT. IMM SIGNED. ANTICIPATE DC THE NEXT COUPLE DAYS. CM TO FOLLOW AND ASSIST NEEDED. [employer] Founder: Es Gomes DCPIA - Discharge Planning Initial Assessment Updated by [id number]: Es Gomes on 02/29/20 5:07 pm * Is the patient Alert and Oriented? Yes * PCP LUCIANO * Pharmacy [facility] * Preadmission Environment Home with Family * ADLs Independent * Other Equipment NONE * Please name any agencies selected above. NONE * Additional services required to return to the preadmission environment? No * Can the patient safely return to the preadmission environment? Yes * Has this patient been hospitalized within the prior 30 days at any hospital? No Patient Name: FARHEEN NIX Page [id number] at 1710 All edits/amendments must be made on the electronic document DICTATION DATE: 02/29/201709 BEHAVIORAL HEALTH WORKER: HALEIGH 02/29/201709 RPT#: [id number] DC DATE: STATUS: ADM IN [facility] [address] [place] [address] END OF REPORT
[2020-02-29 20:00] VITALS: BP 117/39
[2020-03-01] VITALS: BP 140/55
[2020-03-01 04:00] VITALS: BP 136/52
[2020-03-01 05:26] LABS: BASOPHILS 0.1 % (0-2); EOSINOPHILS 1.5 % (0-7); HEMATOCRIT 27.1 % (36.0-48.0); HEMOGLOBIN 8.6 g/dL (12-16); IMMATURE GRANULOCYTES 0.4 % (0-5); LYMPHOCYTES 15.7 % (15-50); MCH 31.5 pg (26.0-34.0); MCHC 31.7 g/dL (31.0-37.0); MCV 99.3 fL (80.0-100.0); MEAN PLATELET VOLUME 9.8 fL (7.4-10.4); MONOCYTES 11.2 % (2-11); NEUTROPHILS 71.1 % (40-80); PLATELET COUNT 220 10x3/uL (130-400); RBC 2.73 10x6/uL (4.00-5.40); RDW 13.5 % (11.5-14.5)
[2020-03-01 05:58] LABS: CALC OSMOLALITY 277 mosm/kg (275-300); CALCIUM 8.1 mg/dL (8.5-10.1); CHLORIDE - SERUM 108 mmol/L (98-107); CREATININE - SERUM 0.8 mg/dL (0.6-1.3); GLUCOSE 101 mg/dL (74-106); PHOSPHOROUS 3.1 mg/dL (2.5-4.9); SODIUM 139 mmol/L (136-145); UREA NITROGEN 12 mg/dL (7-18)
[2020-03-01 05:59] LABS: POTASSIUM - SERUM 3.3 mmol/L (3.5-5.1); eGFR NON AFRICAN AMERICAN 75 mL/min (90-120)
--- NOTE | 2020-03-01 07:00 | NUR ---
RECIEVED PT FROM ACID WASH OPERATOR. PT ALERT AND ORIENTED X4. DR. BLACK REMOVED DOVAL DRAIN PRIOR TO ENTERING. PT IS POST OP 2 DAY FROM A RIGHT SHOULDER, HAS AN IMMOBILIZER. ROOM AIR, LEFT AC SALINE LOCKED BETWEEN ABX. OXY 5 OR 10 FROM PAIN. PT HAS SIGNED PAERWORK REFUSING BECKY ALARM, HAS SCD'S ON. TELEMETRY ON. UP WITH MINIMAL ASSIST, REQUESTS TO SPEAK WITH CM ABOUT POSSIBLE ASSISTANCE/DEVICES FOR HOME. LEFT PT RESTING COMFORTABLY IN BED, DENIES ANY NEEDS. BED IN LOWEST POSITION, BED RAILS X2, CALL LIGHT WITHIN REACH. WILL CONTINUE TO MONITOR.
--- NOTE | 2020-03-01 09:30 | NUR ---
ADMINISTERED MORNING MEDICATION AT THIS TIME, NO DIFFICULTIES. APPLIED OINTMENT TO CHIN. PT HAS BEEN AMBULATED TO THE RESTROOM, DID WELL ON HER OWN. RESTING COMFORTABLY IN BED. FAMILY AT BEDSIDE. DENIES ANY NEEDS. BED IN LOWEST POSITION, BED RAILS X2, CALL LIGHT WITHIN REACH. WILL CONTINUE TO MONTIOR.
--- NOTE | 2020-03-01 10:46 | NUR ---
ADMINISTERED PRN OXY FOR PAIN IN RIGHT SHOULDER. AMBULATING TO BATHROOM. IV LEAKING, WILL RESITE. DENIES ANY OTHER NEEDS. WILL CONTINUE TO MONITOR.
[2020-03-01 11:05] VITALS: BP 153/93
[2020-03-01 12:15] VITALS: BP 153/93
--- NOTE | 2020-03-01 14:27 | NUR ---
STARTED NEW IV TO THE PT LEFT FOREARM, 20 GAUGE. TOLERATED WELL. DENIES ANY NEEDS. PT HAS REQUESTED TO HOLD OFF ON TAKING DILAUDID UNTIL LATER THIS EVENING.
--- NOTE | 2020-03-01 15:32 | NUR ---
ADMINISTERED PRN OXYCODONE FOR 8/10 AFTER HELPING PT AMBULATE TO THE RESTROOM AND BACK TO BED. RESTING COMFORTABLY. DENIES ANY NEEDS. WILL CONTINUE TO MONITOR.
--- NOTE | 2020-03-01 18:40 | NUR ---
PT RESTING COMFORTABLY IN BED. DENIES ANY NEEDS. WILL CONTINUE TO MONITOR.
[2020-03-01 20:00] VITALS: BP 119/60
--- NOTE | 2020-03-02 02:44 | NUR ---
ALERT AND ORENTED ABLE TO VOICE NEEDS AND WANTS TO STAFF IV TO LEFT FOREARM SL. TELEMETRY IN PLACE IMOBALIZER TO RIGHT ARM IN PLACE. CALL LIGHT WATER IN REACH.
[2020-03-02 04:00] VITALS: BP 131/58
[2020-03-02 05:05] LABS: BASOPHILS 0.2 % (0-2); EOSINOPHILS 2.3 % (0-7); HEMATOCRIT 27.1 % (36.0-48.0); HEMOGLOBIN 8.4 g/dL (12-16); IMMATURE GRANULOCYTES 0.5 % (0-5); LYMPHOCYTES 26.4 % (15-50); MCH 30.8 pg (26.0-34.0); MCV 99.3 fL (80.0-100.0); MEAN PLATELET VOLUME 9.4 fL (7.4-10.4); MONOCYTES 11.2 % (2-11); NEUTROPHILS 59.4 % (40-80); PLATELET COUNT 222 10x3/uL (130-400); RBC 2.73 10x6/uL (4.00-5.40); RDW 13.6 % (11.5-14.5); WBC 6.6 10x3/uL (4.8-10.8)
[2020-03-02 05:35] LABS: ALBUMIN 2.5 g/dL (3.4-5.0); ALKALINE PHOSPHATASE 63 U/L (30-120); ALT (SGPT) 15 U/L (10-68); BILIRUBIN - TOTAL 0.54 mg/dL (0.2-1.3); CALC OSMOLALITY 279 mosm/kg (275-300); CALCIUM 8.5 mg/dL (8.5-10.1); CARBON DIOXIDE 21.9 mmol/L (21.0-32.0); CHLORIDE - SERUM 110 mmol/L (98-107); CREATININE - SERUM 0.7 mg/dL (0.6-1.3); GLUCOSE 101 mg/dL (74-106); POTASSIUM - SERUM 3.4 mmol/L (3.5-5.1); PROTEIN - SERUM 6.3 g/dL (6.4-8.2); SODIUM 140 mmol/L (136-145); UREA NITROGEN 14 mg/dL (7-18); eGFR NON AFRICAN AMERICAN 87 mL/min (90-120)
--- NOTE | 2020-03-02 08:00 | NUR ---
ALERT AND OIENTED WITH DRESSIGN DRY ADN INTACT TO RIGHT SHOULDER WITH NO S/S OF INFECTION NOTED. SHOULDER IMMOBILIZER IN PLACE WITH CAP REFILL <3 SEC AND DENIES ANY NUMBNESS. SBA TO BATHROOM ONLY. LUNGS CTA. ENCOURGAED TO USE CALL LIGHT FOR ASSSIT.
[2020-03-02] MEDS ORDERED: VISTARIL50 MG PO (09:04)
[2020-03-02] MEDS ORDERED: OXYCODONE HCL5 M1 PO (09:04)
[2020-03-02 09:07] VITALS: BP 127/64
--- NOTE | 2020-03-02 10:42 | MORECARE ---
CASE MANAGEMENT DISCHARGE SUMMARY PATIENT: FARHEEN NIX LUDIN UNIT: [id number] ADM DATE: 02/24/20 AGE: 69 : 48 SEX: F ROOM/BED: D.2234 AUTHOR: YEE,DOC PHYSICIAN: REFERRING PHYSICIAN: LEDA FOWLER MD DATE OF SERVICE: 03/02/20 Discharge Plan Patient Name: FARHEEN NIX Facility: [facility]:[place] : 1950 Planned Disposition: Home Anticipated Discharge Date: Discharge Date: Expected LOS: Initial Reviewer: [email or web address] Initial Review Date: 02/29/2020 Generated: 03/02/20 11:41 am Comments DCP- Discharge Planning Updated by [email or web address]: Es Gomes on 03/02/20 9:[address] Patient Name: FARHEEN NIX Encounter No: [id number] : 1950 Primary Insurance: MEDICARE A & B Anticipated DC Date: Planned Disposition: Home External Planned Provider: : DCP follow-up note: Patient and family in agreement with discharge plan. HH and equipment offered again. Denies needs. Plans to DC to home with today. IMM signed. No changes to plan. Case management will follow and assist as needed. Es Gomes DCP- Discharge Planning Updated by [email or web address]: Es Gomes on 02/29/20 4:[address] Patient Name: FARHEEN NIX Admission Status: Elective Accout number: [id number] Admission Date: 02-24-2020 : 1950 Admission Diagnosis:UNSP FRACTURE OF SHAFT OF HUMERUS, RIGHT ARM, INIT Attending: TANISHA Current LOS: 5 Anticipated DC Date: Planned Disposition: Home Primary Insurance: MEDICARE A & B Discharge Planning Comments: CM met with patient at bedside after explaining CM role and obtaining verbal consent. CM discussed availability / needs of home health, REHAB and medical equipment. PATIENT DENIES ANY DISCHARGE NEEDS. PLANS TO DC TO HOME WITH . DOES NOT WANT HH OR NEED EQUIPMENT. IMM SIGNED. ANTICIPATE DC THE NEXT COUPLE DAYS. CM TO FOLLOW AND ASSIST NEEDED. Engineering Lecturer: Es Gomes DCPIA - Discharge Planning Initial Assessment Updated by [email or web address]: Es Gomes on 02/29/20 5:07 pm * Is the patient Alert and Oriented? Yes * PCP LUCIANO * Pharmacy [facility] * Preadmission Environment Home with Family * ADLs Independent * Other Equipment NONE * Please name any agencies selected above. NONE * Additional services required to return to the preadmission environment? No * Can the patient safely return to the preadmission environment? Yes * Has this patient been hospitalized within the prior 30 days at any hospital? No Coverage Notice Reviewer: [id number] Frankie Gomes Notice Issued Date-Time: 02/29/2020 17:10 Notice Type: IM Discharge Notice Notice Delivered To: Patient Relationship to Patient: Teacher Vocational Training Name: Delivery Method: HAND - Hand Delivered Rose Days: Prior Verbal Notification: Recipient Understood Notice: Yes Recipient Signature: Yes Med Rec Note Co-signed by Attending: Coverage Notice Comment: Last DP export: 02/29/20 4:10 p Patient Name: FARHEEN NIX Page [id number] at 1042 All edits/amendments must be made on the electronic document DICTATION DATE: 03/02/20 1041 FITNESS CLUB MANAGER: HALEIGH 03/02/20 1041 RPT#: [id number] DC DATE: STATUS: ADM IN [facility] [address] [place] [address] END OF REPORT
--- NOTE | 2020-03-02 11:15 | NUR ---
IV DISCONTINUED AND VERBALIZED UNDERSTANDING OF DISCHARGE INSTRUCTIONS. STABLE AT TIME OF DEPARTURE.
--- NOTE | 2020-03-02 16:32 | MORECARE ---
CASE MANAGEMENT DISCHARGE SUMMARY PATIENT: FARHEEN NIX LUDIN UNIT: [id number] ADM DATE: 02/24/20 AGE: 69 : 46 SEX: F ROOM/BED: D.2234 AUTHOR: YEE,DOC PHYSICIAN: REFERRING PHYSICIAN: LEDA FOWLER MD DATE OF SERVICE: 03/02/20 Discharge Plan Patient Name: FARHEEN NIX Facility: [facility]:[place] : 1950 Planned Disposition: Home Anticipated Discharge Date: Discharge Date: 03/02/2020 Expected LOS: Initial Reviewer: [email or web address] Initial Review Date: 02/29/2020 Generated: 03/02/20 5:31 pm Comments DCP- Discharge Planning Updated by [email or web address]: Es Gomes on 03/02/20 9:[address] Patient Name: FARHEEN NIX Encounter No: [id number] : 1950 Primary Insurance: MEDICARE A & B Anticipated DC Date: Planned Disposition: Home External Planned Provider: : DCP follow-up note: Patient and family in agreement with discharge plan. HH and equipment offered again. Denies needs. Plans to DC to home with today. IMM signed. No changes to plan. Case management will follow and assist as needed. Es Gomes DCP- Discharge Planning Updated by [email or web address]: Es Gomes on 02/29/20 4:[address] Patient Name: FARHEEN NIX Admission Status: Elective Accout number: [id number] Admission Date: 02-24-2020 : 1950 Admission Diagnosis:UNSP FRACTURE OF SHAFT OF HUMERUS, RIGHT ARM, INIT Attending: TANISHA Current LOS: 5 Anticipated DC Date: Planned Disposition: Home Primary Insurance: MEDICARE A & B Discharge Planning Comments: CM met with patient at bedside after explaining CM role and obtaining verbal consent. CM discussed availability / needs of home health, REHAB and medical equipment. PATIENT DENIES ANY DISCHARGE NEEDS. PLANS TO DC TO HOME WITH . DOES NOT WANT HH OR NEED EQUIPMENT. IMM SIGNED. ANTICIPATE DC THE NEXT COUPLE DAYS. CM TO FOLLOW AND ASSIST NEEDED. Sharepoint Admin: Es Gomes DCPIA - Discharge Planning Initial Assessment Updated by [id number]: Es Gomes on 02/29/20 5:07 pm * Is the patient Alert and Oriented? Yes * PCP LUCIANO * Pharmacy [facility] * Preadmission Environment Home with Family * ADLs Independent * Other Equipment NONE * Please name any agencies selected above. NONE * Additional services required to return to the preadmission environment? No * Can the patient safely return to the preadmission environment? Yes * Has this patient been hospitalized within the prior 30 days at any hospital? No Coverage Notice Reviewer: [id number] - Esjose Gomes Notice Issued Date-Time: 02/29/2020 17:10 Notice Type: IM Discharge Notice Notice Delivered To: Patient Relationship to Patient: Regulatory Compliance Manager Name: Delivery Method: HAND - Hand Delivered Rose Days: Prior Verbal Notification: Recipient Understood Notice: Yes Recipient Signature: Yes Med Rec Note Co-signed by Attending: Coverage Notice Comment: Last DP export: 03/02/20 9:42 a Patient Name: FARHEEN NIX Page [id number] at 1632 All edits/amendments must be made on the electronic document DICTATION DATE: 03/02/20 1631 SENIOR SOFTWARE DEVELOPER: HALEIGH 03/02/20 1631 RPT#: [id number] DC DATE:03/02/20 STATUS: DIS IN [facility] [address] [place] [address] END OF REPORT
== END 2020-03-02 11:15 | disposition home or self-care (01) | DRG 483 ==
LOC: D.ER 10:35 → D.MS 19:25
PROVIDERS: Family Medicine; Orthopaedic Surgery; ADMIT Family Medicine; ATTEND Family Medicine
PROC: 0HQ1XZZ Repair Face Skin, External Approach (ICD-10-PCS; 2020-02-24)
PROC: 0RRJ00Z Replacement of Right Shoulder Joint with Reverse Ball and Socket Synthetic Substitute, Open Approach (ICD-10-PCS; principal; 2020-02-28 16:30)
DX: S42.301A Unspecified fracture of shaft of humerus, right arm, initial encounter for closed fracture (principal); I10 Essential (primary) hypertension; E78.5 Hyperlipidemia, unspecified; I25.10 Atherosclerotic heart disease of native coronary artery without angina pectoris; K21.9 Gastro-esophageal reflux disease without esophagitis; D64.9 Anemia, unspecified; Z79.01 Long term (current) use of anticoagulants; G40.909 Epilepsy, unspecified, not intractable, without status epilepticus; M19.90 Unspecified osteoarthritis, unspecified site; K90.0 Celiac disease; S01.81XA Laceration without foreign body of other part of head, initial encounter; Z86.718 Personal history of other venous thrombosis and embolism; I25.2 Old myocardial infarction